=== PATIENT | male | born 2000 | race Caucasian/White ===

== ENCOUNTER 2023-07-15 23:49 | Emergency (ER) | payer OTHER, SELFPAY ==
--- NOTE | 2023-07-15 23:52 | ED.GENADULT ---
HPI - General Adult General Chief complaint: Ear Stated complaint: left thumb laceraction Time Seen by Provider: 07/15/23 23:50 Source: patient, RN notes reviewed and old records reviewed Mode of arrival: Ambulatory Limitations: no limitations History of Present Illness HPI narrative: 22-year-old male complaint of laceration to his left thumb patient is right-hand dominant. Patient was trying to cut some tape with brand new knives that are very sharp and accidentally cut his thumb. Does not appear to have any nail involvement. They stated blood lot when it occurred. About an hour prior to arrival. Patient does not have any numbness or tingling. No other injuries. States tetanus has been updated in the last 3 years. No known drug allergies. No tobacco, occasional alcohol, no recreational drugs. Patient also notes he has had a lot of discomfort in his right ear the past day particularly when he pulls on the your itself. Related Data Allergies Allergy/AdvReac Type Severity Reaction Status Date / Time No Known Drug Allergies Allergy Verified 07/16/23 00:28 Review of Systems Review of Systems ROS Unobtainable: All systems reviewed & are unremarkable except as noted in HPI and below Patient History Social History Smoking Status: Never smoker Exam Narrative Exam Narrative: GEN: well nourished, well appearing male, alert and oriented x 3, patient appears to be in mild distress. HEENT: Atraumatic, pupils are equal round reactive to light, extraocular movements are intact, nares are clear, cerumen bilaterally, unable to visualize tympanic membrane bilaterally, canals otherwise appear normal. HEART: Regular rate and rhythm without murmur, clicks, rubs. LUNGS:Lungs clear to auscultation, no wheezes, rales, crackles, chest moves symmetrically ABD:bowel sounds normal, soft, non-tender, no guarding, rebound, rigidity, no masses noted, no hepatosplenomegaly MSCL: Patient has a 1.5 cm laceration to the distal thumb on the pad, wrapping towards the nail but does not involve the nail. Does gape, is through the skin but does not appear to be down to bone. Patient has cap refill of less than 2 seconds in the distal portion. He has sensation throughout the thumb. Has full range of motion. Full range of motion, normal gait NEURO:CN 2-12 intact, sensation normal Initial Vital Signs Initial Vital Signs: Vital Signs Temperature 96.3 F L 07/16/23 00:01 Pulse Rate 71 07/16/23 00:01 Respiratory Rate 17 07/16/23 00:01 Blood Pressure 160/86 H 07/16/23 00:01 Pulse Oximetry 97 07/16/23 00:01 Oxygen Delivery Method Room Air 07/16/23 00:01 Procedures Laceration Repair Laceration 1: Time of procedure: 12:05 Site: hand (thumb) Side (If applicable): left Size (cm): 1.5 Description: flap and clean Depth: simple, single layer Local Anesthetic: lidocaine 2% Amount of anesthesia used (mL): 1.5 Pre-repair: wound explored, irrigated extensively and deep structures intact Skin layer closed with: nylon Skin layer suture size: 5-0 Number of sutures: 4 Technique: simple, interrupted Course Orders Ordered: Discontinued Medications Carbamide Peroxide (Carbamide Peroxide Otic 15 Ml) 4 drops EAR-RIGHT NOW ONE Stop: 07/16/23 00:17 Last Admin: 07/16/23 00:27 Dose: 4 drops Documented By: SANGEETA Vital Signs Vital signs: Vital Signs - 8 hr 07/16/23 00:01 07/16/23 00:58 Temperature 96.3 F L Pulse Rate 71 72 Respiratory Rate 17 15 Blood Pressure 160/86 H 141/74 H Pulse Oximetry 97 99 Oxygen Delivery Method Room Air Room Air Medical Decision Making [facility] Narrative Medical decision making narrative: 22-year-old male with a laceration to the distal left thumb no nail involvement. Quite gapped. Patient had 4 sutures placed after irrigation with good alignment cap refill is present pre and post with normal range of motion, no suspected bony or tendon involvement. Patient's tetanus is up-to-date. Patient also noted in his right ear has been bothering him he has had a lot of pressure, it is uncomfortable when he pulls on the ear itself. He has bilateral cerumen what appears to be impaction. After discussion we will irrigate his right ear. Nursing irrigated right ear. Had a large amount of cerumen out, there is still some. Patient was given Debrox drops, continue with warm water irrigation with bulb suction at home for the next day or 2 and if no significant improvement follow-up. Discharge Plan Departure Patient Disposition: Home Clinical Impression: Laceration, Impacted cerumen Instructions: DI for Laceration Repair Activity Restrictions/Additional Instructions: You may use Debrox drops once or twice daily and irrigated with bulb suction and warm water as needed. Wound Care: Keep wound(s) clean and dry. Wash daily with soap and water only. Do not use over the counter products (alcohol or peroxide)on the wounds unless instructed by a physician. If wound condition worsens (increased/expanding redness, developing fluid blisters, or worsening pain), either contact your doctor for an urgent re-assessment , or return to the Emergency Department. Return to the Emergency Department for any new or worsening symptoms. Return to the ED, urgent care, or visit a primary care doctor for removal or suture or lucero in 7-10 days Return if fever greater than 100.4 Fahrenheit, increased swelling, increasing pain or worsening symptoms such as increased discharge or spreading redness. Referrals: ProviderAlanna [Primary Care Provider] - Stand Alone Forms: Patient Portal/API, Work Release Note
[2023-07-16 00:01] VITALS: BP 160/86; PULSE 71; RESP 17; TEMP 35.7; O2SAT 97; BMI 23.7
[2023-07-16] MEDS: CARBAMIDE PEROXIDE OTIC 15 ML 4 DROPS EAR-RIGHT (00:27)
[2023-07-16 00:58] VITALS: BP 141/74; PULSE 72; RESP 15; O2SAT 99
== END 2023-07-16 00:59 | disposition home or self-care (01) ==
PROVIDERS: Emergency Provider Emergency Medicine
DX: S61.012A Laceration without foreign body of left thumb without damage to nail, initial encounter (principal); W26.0XXA Contact with knife, initial encounter; H61.23 Impacted cerumen, bilateral
CPT/HCPCS: 12001; 99283